=== PATIENT | female | born 1960 | race Caucasian/White ===

== ENCOUNTER → 2017-09-08 | Outpatient (CLI) | payer OTHER ==
--- NOTE | 2017-09-12 13:52 | HM ---
HOLTER MONITOR REPORT DATE OF SERVICE: 09/08/2017 INDICATION OF THE STUDY: Palpitation. The patient was monitored for 24 hours. The baseline rhythm appeared to be a sinus mechanism with a minimum heart rate of 58 beats per minute, max heart rate 132 beats per minute, and average heart rate of 82 beats per minute. Ventricular ectopic events were reported in less than 1% of the total count. Supraventricular ectopic events were reported in less than 1% of total count as well. No evidence of sinus pause or sinus arrest. The patient reported no symptoms. CONCLUSION: 1. Sinus rhythm as a baseline mechanism. 2. Rare ventricular ectopic events. 3. Rare supraventricular ectopic events. 4. No evidence of sinus pause or sinus arrest. 5. The patient reported no symptoms. MMODL / IJN: [id number] /
== END | disposition home or self-care (01) ==
LOC: RADECHMAIN 11:40
PROVIDERS: ATTEND Family Medicine
DX: R00.2 Palpitations (principal)
CPT/HCPCS: 93225; 93226